=== PATIENT | male | born 1990 | race Caucasian/White ===

== ENCOUNTER 2017-07-28 08:13 | Emergency (ER) | payer OTHER ==
[2017-07-28] MEDS: IBUPROFEN 800 MG TAB PO (09:37)
== END 2017-07-28 10:57 | disposition home or self-care (01) ==
LOC: E/R 08:13
DX: S49.92XA Unspecified injury of left shoulder and upper arm, initial encounter (principal); S29.9XXA Unspecified injury of thorax, initial encounter; S40.811A Abrasion of right upper arm, initial encounter; S40.812A Abrasion of left upper arm, initial encounter; S80.811A Abrasion, right lower leg, initial encounter; S80.812A Abrasion, left lower leg, initial encounter; F17.210 Nicotine dependence, cigarettes, uncomplicated; W17.89XA Other fall from one level to another, initial encounter; Y92.9 Unspecified place or not applicable
CPT/HCPCS: 72050; 72072; 73030; 99284-25